=== PATIENT | female | born 1970 | race Caucasian/White ===

== ENCOUNTER 2016-07-04 22:26 | Emergency (ER) | payer MEDICAID, OTHER ==
[2016-07-04 22:33] VITALS: RESP 16
--- NOTE | 2016-07-04 23:11 | EDPHY ---
H & P Stated Complaint: VB x 2 days, worse tonight HPI/ROS: Chief complaint: Vaginal bleeding History of present illness: This is a 46-year-old female who presents to the emergency department for evaluation of vaginal bleeding. Patient reports the onset of vaginal bleeding over the last 2 days. She does believe this is a normal time for the onset of her menstrual cycle. Her concern is that she has very heavy vaginal bleeding. She is going through a tampon an hour. She denies specific precipitating or alleviating factors. She denies other associated signs or symptoms. She reports she has had similar problems for the last few years with very heavy menstrual cycles. She has been on control pills which has helped before. She is not currently taking any medications. She does not have an OBGYN doctor. Review of systems: A 10 point review of systems was obtained and other than described above was negative - Personal History LMP (Females 10-55): Now Current Tetanus/Diphtheria Vaccine: Yes Current Tetanus Diphtheria and Acellular Pertussis (TDAP): Yes Tetanus Vaccine Date: 2015 - Medical/Surgical History Hx Asthma: No Hx Chronic Respiratory Disease: No Hx Diabetes: No Hx Cardiac Disease: No Hx Renal Disease: No Hx Cirrhosis: No Hx Alcoholism: No Hx HIV/AIDS: No Hx Splenectomy or Spleen Trauma: No Other PMH: denies - Social History Smoking Status: Never smoked - Physical Exam Exam: General Appearance: Alert, nontoxic. Eyes: Pupils equal and round no pallor or injection. ENT, Mouth: Mucous membranes moist. Respiratory: There are no retractions, lungs are clear to auscultation. Cardiovascular: Regular rate and rhythm. Gastrointestinal: Abdomen is soft and non tender, no masses, bowel sounds normal. Neurological: Alert and oriented. Strength and sensation intact and symmetrical. Skin: Warm and dry, no rashes. Musculoskeletal: Neck is supple non tender. Extremities are symmetrical, full range of motion. Psychiatric: Patient is oriented X 3, there is no agitation. Constitutional: Initial Vital Signs Temperature (C) 36.7 C 07/04/16 22:30 Heart Rate 101 H 07/04/16 22:30 Respiratory Rate 16 07/04/16 22:30 Blood Pressure 129/91 H 07/04/16 22:30 O2 Sat (%) 93 07/04/16 22:30 O2 Delivery Mode Room Air Allergies/Adverse Reactions: No Known Allergies Allergy (Unverified 07/04/16 22:29) Home Medications: Medication Instructions Recorded NK [No Known Home Meds] 07/04/16 Medical Decision Making - Diagnostics Imaging: Pelvic ultrasound is negative for acute findings ED Course/Re-evaluation: Patient seen under the supervision of my secondary supervising physician Dr. Jamarcus Santiago. Patient presents to the emergency department for evaluation of heavy vaginal bleeding. Patient is nontoxic. She is afebrile and vital signs are stable. Blood studies and pelvic ultrasound are unremarkable. Patient does appear to be hemodynamically stable. I believe she is appropriate for outpatient management. She will be discharged home. She is referred to OBGYN for further evaluation and care. Return precautions are given. Patient voiced understanding and agreement with plan. Differential Diagnosis: Included but not limited to with associated complications, dysfunctional uterine bleeding, endocrine pathology, pelvic mass - Data Points Laboratory Results: Laboratory Results 07/04/16 23:20 07/04/16 23:20 07/04/16 23:20 WBC 7.35 10^3/uL (3.80-9.50) RBC 4.09 L 10^6/uL (4.18-5.33) Hgb 12.7 g/dL (12.6-16.3) Hct 37.8 L % (38.0-47.0) MCV 92.4 fL (81.5-99.8) MCH 31.1 pg (27.9-34.1) MCHC 33.6 g/dL (32.4-36.7) RDW 13.3 % (11.5-15.2) Plt Count 307 10^3/uL (150-400) MPV 8.7 fL (8.7-11.7) Neut % (Auto) 35.1 L % (39.3-74.2) Lymph % (Auto) 47.6 H % (15.0-45.0) Alexander % (Auto) 12.9 % (4.5-13.0) Eos % (Auto) 3.7 % (0.6-7.6) Baso % (Auto) 0.4 % (0.3-1.7) Nucleat RBC Rel Count 0.0 % (0.0-0.2) Absolute Neuts (auto) 2.58 10^3/uL (1.70-6.50) Absolute Lymphs (auto) 3.50 H 10^3/uL (1.00-3.00) Absolute Monos (auto) 0.95 H 10^3/uL (0.30-0.80) Absolute Eos (auto) 0.27 10^3/uL (0.03-0.40) Absolute Basos (auto) 0.03 10^3/uL (0.02-0.10) Absolute Nucleated RBC 0.00 10^3/uL (0-0.01) Immature Gran % 0.3 % (0.0-1.1) Immature Gran # 0.02 10^3/uL (0.00-0.10) Sodium 149 H mEq/L (134-144) Potassium 4.1 mEq/L (3.5-5.2) Chloride 109 mEq/L (97-110) Carbon Dioxide 26 mEq/l (22-31) Anion Gap 14 mEq/L (8-16) BUN 15 mg/dL (7-23) Creatinine 0.8 mg/dL (0.6-1.0) Estimated GFR > 60 Glucose 105 H mg/dL (70-100) Calcium 9.6 mg/dL (8.5-10.4) Beta HCG, Qual NEGATIVE Departure - Departure Disposition: Home, Routine, Self-Care Clinical Impression: Dysfunctional uterine bleeding Condition: Good Instructions: Dysfunctional Uterine Bleeding (ED) Additional Instructions: Follow-up with an OBGYN doctor for continued evaluation and care If symptoms worsen or new symptoms develop return to the emergency department for recheck Referrals: Trinidad Smallwood MD [Primary Care Provider] - As per Instructions Camryn Mack MD [Medical Doctor] - As per Instructions
[2016-07-04 23:34] LABS: % IMMATURE GRANULYOCYTES 0.3 % (0.0-1.1); ABSOLUTE IMMATURE GRANULOCYTES 0.02 10^3/uL (0.00-0.10); ADD DIFF? NO; ADD MORPH? NO; ADD SCAN? NO; ATYPICAL LYMPHOCYTE FLAG 40 (0-99); FRAGMENT RBC FLAG 0 (0-99); HEMATOCRIT 37.8 % (38.0-47.0); HEMOGLOBIN 12.7 g/dL (12.6-16.3); LEFT SHIFT FLG 0 (0-99); LIPEMIA HEMOLYSIS FLAG 80 (0-99); MEAN CELL HEMOGLOBIN 31.1 pg (27.9-34.1); MEAN CELL HEMOGLOBIN CONCENTR. 33.6 g/dL (32.4-36.7); MEAN CELL VOLUME 92.4 fL (81.5-99.8); MEAN PLATELET VOLUME 8.7 fL (8.7-11.7); PLATELET CLUMPS FLAG 10 (0-99); PLATELET COUNT 307 10^3/uL (150-400); RED BLOOD CELL COUNT 4.09 10^6/uL (4.18-5.33); RED CELL DISTRIBUTION WIDTH 13.3 % (11.5-15.2)
[2016-07-04 23:44] LABS: ANION GAP 14 mEq/L (8-16); CALCIUM 9.6 mg/dL (8.5-10.4); CARBON DIOXIDE 26 mEq/l (22-31); CHLORIDE 109 mEq/L (97-110); CREATININE 0.8 mg/dL (0.6-1.0); GLOMERULAR FILTRATION RATE > 60; GLUCOSE 105 mg/dL (70-100); POTASSIUM 4.1 mEq/L (3.5-5.2); SODIUM 149 mEq/L (134-144)
--- NOTE | 2016-07-05 00:03 | US ---
Pelvic Ultrasound (Transabdominal and Endovaginal) with color flow and spectral Doppler History: Pelvic pain. Menorrhagia. Findings: The pelvis was first examined through a moderately distended bladder from TRANSABDOMINAL approach. UTERUS: Size: 8.9 x 4.4 x 5.7 cm in longitudinal, AP, and transverse projections. Orientation: Anteflexed. Uterine Masses: None seen. Endometrium: Normal in appearance from transabdominal approach measuring about 3 mm. ADNEXA: No adnexal masses. A normal appearing right ovary is identified measuring 2.5 x 1.7 x 1.7 cm . The pelvis was then evaluated from ENDOVAGINAL approach after the bladder was emptied to better evalu ate the uterus and adnexa. UTERUS: Orientation: Anteverted. Masses: There is a small intramural fibroid measuring about 11 mm. Endometrium: Normal measuring 3 mm in thickness. ADNEXA: Small follicular cyst is present on the left ovary measuring about 11 mm. Right ovary size: Not well delineated from endovaginal approach. Left ovary size: 2.2 x 1.5 x 1.6 cm Color flow and spectral Doppler: Normal color flow imaging with normal Doppler waveform on the left. Doppler evaluation was not performed of the right ovary. Free fluid: None. Other findings:None. Impression: 1. Normal-appearing endometrial stripe. 2. No adnexal mass. 3. 11-mm intramural fibroid. These findings were discussed by telephone with Arslan Deleon PA-C at 0001 hrs.
[2016-07-05 00:23] VITALS: BP 136/74; PULSE 88; TEMP 98.2; O2SAT 96
== END 2016-07-05 00:23 | disposition home or self-care (01) ==
LOC: EEVIPCON 22:26
DX: N93.8 Other specified abnormal uterine and vaginal bleeding (principal)

== ENCOUNTER → 2018-07-06 | Outpatient (CLI) | payer MEDICAID, OTHER | LOC: FIMAGING 09:01 | PROVIDERS: ATTEND Physician Assistant | DX: Z12.31 Encounter for screening mammogram for malignant neoplasm of breast (principal) ==

== ENCOUNTER 2018-11-28 15:11 | Emergency (ER) | payer MEDICAID | END 2018-11-28 16:09 | disposition home or self-care (01) ==